=== PATIENT | male | born 1975 ===

== ENCOUNTER 2020-05-10 18:53 | Inpatient (IN) ==
[2020-05-10 19:31] LABS: Basophils % 0.2 % (0.0-0.8); Hematocrit 42.9 VOL% (42.0-52.0); Hemoglobin 14.9 GM/DL (14.0-18.0); Immature Granulocytes % 0.3 %; Immature Granulocytes Absolute 0.04 #; Lymphocytes # 1.2 10*3/uL (1.4-4.0); Lymphocytes % 10.5 % (21.2-54.2); Mean Corpuscular HGB Conc 34.7 GM/DL (32-36); Mean Corpuscular Volume 80.6 FL (87-102); Platelet Count 180 T/CUMM (130-400); Red Blood Count 5.32 MC/CUMM (3.8-5.5); Red Cell Distribution Width 12.8 % (9.3-17.3); White Blood Count 11.6 T/CUMM (4-12)
[2020-05-10 19:54] LABS: Bilirubin,Total 1.4 MG/DL (0.2-1.0); Calcium 8.4 MG/DL (8.5-10.1); Osmolality,Calculated 269.1 MOS/KG (273-304); Total Protein 7.2 G/DL (6.4-8.3)
[2020-05-10] MEDS ORDERED: DEXAMETHASONE 4 MG/1 ML VIAL IV STA (21:43)
[2020-05-10] MEDS ORDERED: PIPERACILLIN/TAZOBACTAM 3,375 MG in SODIUM CHLORIDE 0.9% 100 ML IV STA (21:55)
[2020-05-10 22:03] LABS: Ferritin 515.2 ng/ml (26-388)
[2020-05-10] MEDS ORDERED: DEXTROSE 50% 25 GM/50 ML VIAL IV PRN (22:37)
[2020-05-10] MEDS ORDERED: ZALEPLON 5 MG CAPSULE PO PRN (22:37)
[2020-05-10] MEDS ORDERED: GLUCAGON 1 MG VIAL IM PRN (22:37)
[2020-05-10] MEDS ORDERED: ACETAMINOPHEN 325 MG TABLET PO PRN (22:37)
[2020-05-10] MEDS ORDERED: ONDANSETRON 4 MG/2 ML VIAL IV PRN (22:37)
[2020-05-10] MEDS ORDERED: DEXTROSE 50% 25 GM/50 ML SYRINGE IV PRN (23:20)
[2020-05-11] MEDS: ENOXAPARIN 40 MG/0.4 ML SYRINGE SUBCUT SCH (00:30)
[2020-05-11 04:43] LABS: Bacteria,Urine Occasional /HPF (Few); Bilirubin,Urine Negative (Negative); Blood, Urine Negative (Negative); Glucose,Urine (UA) Negative (Negative); Ketones,Urine 20 mg/dL (Negative); Mucus,Urine Moderate /LPF (Occasional); Nitrite,Urine Negative (Negative); Protein,Urine 30 MG/DL; RBC,Urine 1 /HPF (0-4); Urine Appearance CLEAR (Clear); Urine Color Amber (Yellow); Urine Specific Gravity 1.028 (1.001-1.035); WBC,Urine 2 /HPF (0-6)
[2020-05-11] MEDS: PIPERACILLIN/TAZOBACTAM 3,375 MG in SODIUM CHLORIDE 0.9% 100 ML IV SCH ×3 (04:55→23:50)
[2020-05-11 07:43] LABS: Ferritin 509.5 ng/ml (26-388)
[2020-05-11] MEDS ORDERED: ZINC SULFATE 220 MG CAPSULE PO SCH (09:00)
[2020-05-11] MEDS: PANTOPRAZOLE 40 MG TABLET PO SCH (09:05)
[2020-05-11] MEDS: ASCORBIC ACID 500 MG TABLET PO SCH (09:05)
[2020-05-11] MEDS: DEXAMETHASONE 10 MG/1 ML VIAL IV SCH (09:08)
[2020-05-12] MEDS: ENOXAPARIN 40 MG/0.4 ML SYRINGE SUBCUT SCH (00:31)
[2020-05-12 05:44] LABS: Basophils % 0.1 % (0.0-0.8); Hematocrit 40.4 VOL% (42.0-52.0); Hemoglobin 13.9 GM/DL (14.0-18.0); Immature Granulocytes % 1.1 %; Immature Granulocytes Absolute 0.16 #; Lymphocytes # 1.3 10*3/uL (1.4-4.0); Lymphocytes % 8.5 % (21.2-54.2); Mean Corpuscular HGB Conc 34.4 GM/DL (32-36); Mean Corpuscular Volume 81.5 FL (87-102); Mean Platelet Volume 9.8 FL (9.6-12.0); Monocytes % 7.7 % (1.7-12.7); Neutrophils % 82.6 % (38.7-73.9); Platelet Count 236 T/CUMM (130-400); Red Blood Count 4.96 MC/CUMM (3.8-5.5); Red Cell Distribution Width 12.7 % (9.3-17.3); White Blood Count 15.1 T/CUMM (4-12)
[2020-05-12 06:06] LABS: Ferritin 462.3 ng/ml (26-388); Osmolality,Calculated 278.7 MOS/KG (273-304)
[2020-05-12] MEDS: DEXAMETHASONE 10 MG/1 ML VIAL IV SCH (09:55)
[2020-05-12] MEDS: ASCORBIC ACID 500 MG TABLET PO SCH (09:55)
[2020-05-12] MEDS: PANTOPRAZOLE 40 MG TABLET PO SCH (09:55)
[2020-05-12] MEDS: PIPERACILLIN/TAZOBACTAM 3,375 MG in SODIUM CHLORIDE 0.9% 100 ML IV SCH (10:05)
[2020-05-12 13:41] VITALS: BP 106/62
[2020-05-12] MEDS ORDERED: AMOXICILLIN/CLAV 875 MG TABLET PO SCH (21:00)
[2020-05-13] MEDS ORDERED: DEXAMETHASONE 4 MG TABLET PO SCH (09:00)
== END 2020-05-12 15:25 | disposition home health service (06) | DRG 177 ==
LOC: N.ED 18:53 → N.EDINP 22:37 → N.2E 05-11 22:08
PROVIDERS: ADMIT Internal Medicine; ATTEND Internal Medicine